=== PATIENT | female | born 1985 | race Two or more races ===

== ENCOUNTER 2024-05-19 15:43 | Emergency (ER) | payer OTHER, SELFPAY ==
[2024-05-19 15:52] VITALS: BP 136/70; PULSE 88; RESP 18; TEMP 36.6; O2SAT 99; BMI 48.8
--- NOTE | 2024-05-19 15:59 | PD.EDWOUND ---
ED Wound/Laceration-RME/HPI General Chief Complaint: Wound/Laceration Stated Complaint: LACERATION LEFT 2ND FINGER Time Seen by Provider: 05/19/24 15:47 Arrival date/time: 05/19/24 15:43 38-year-old female presents emergency department complaint of laceration left index finger palmar aspect there are no other associated symptoms or aggravating factors no other modifying factors, patient denies taking medication before coming to ER today Limitations: no limitations Related Data Home Medications ?Medication ?Instructions ?Recorded ?Confirmed Levothyroxine * (SYNTHROID *) 25 mcg PO QDAY #0 tabs 02/21/17 phentermine 37.5 mg capsule 0.5 tab PO QAMAC #0 caps 02/22/17 (Adipex-P) Previous Rx's ?Medication ?Instructions ?Recorded dicyclomine 20 mg tablet 20 mg PO TID PRN abdominal pain 06/01/23 #30 tabs hydrocodone 5 mg-acetaminophen 325 1 tab PO Q6H PRN pain #7 tabs 09/22/23 mg tablet ibuprofen 800 mg tablet (IBU) 800 mg PO Q8H #20 tabs 09/22/23 Allergies Allergy/AdvReac Type Severity Reaction Status Date / Time Penicillins Allergy Severe PT STATED, Verified 05/19/24 15:45 I STOPPED BREATHING A CHILD Review of Systems Review of Systems Systems Reviewed: All systems reviewed, normal except as documented Constitutional Constitutional: Reports system reviewed and no additional complaints, except as documented, Denies fever(s) and Denies headache(s) Eyes Eyes: Reports system reviewed and no additional complaints, except as documented and Denies blurry vision ENT Ears, Nose, Mouth, and Throat: Reports system reviewed and no additional complaints, except as documented, Denies headache(s), Denies nasal congestion and Denies nasal discharge Cardiovascular Cardiovascular: Reports system reviewed and no additional complaints, except as documented, Denies chest pain and Denies dyspnea Respiratory Respiratory: Reports system reviewed and no additional complaints, except as documented, Denies chest congestion, Denies cough and Denies dyspnea Gastrointestinal Gastrointestinal: Reports system reviewed and no additional complaints, except as documented and Denies abdominal pain Integumentary/Breasts Skin/Breast: Reports system reviewed and no additional complaints, except as documented, Denies rash and Reports wounds (Laceration finger) Neurologic Neurologic: Reports system reviewed and no additional complaints, except as documented, Reports as per HPI and Denies headache(s) Past Medical History Past Medical History CARDIAC: Negative Congestive Heart Failure RESPIRATORY: Negative Chronic Obstructive Pulmonary Disease (COPD) GENITOURINARY: Negative Renal Disease ENDOCRINE: Negative Diabetes Mellitus Type 1 or Diabetes Mellitus Type 2 OTHER HISTORY: Negative Blood Transfusions Social History SMOKING STATUS: Never smoker ED Exam General Limitations: Present no limitations General appearance: Present alert and in no apparent distress Head Head exam: Present atraumatic Eye Eye exam: Present normal appearance, PERRL and EOMI ENT ENT exam: Present normal exam, normal oropharynx and mucous membranes moist Neck Neck exam: Present normal inspection, full ROM and trachea midline Chest Chest inspection: Present normal inspection and symmetric chest wall rise Respiratory Respiratory exam: Present normal lung sounds bilaterally Cardiovascular Cardiovascular exam: Present regular rate, normal rhythm and normal heart sounds Abdominal Exam Abdominal exam: Present soft and normal bowel sounds Extremities Exam Extremities exam: Present full ROM, tenderness, normal capillary refill and other (Laceration left index finger); Absent joint swelling Back Exam Back exam: Present normal inspection and full ROM Neurological Exam Neurological exam: Present alert, oriented X3 and CN II-XII intact Psychiatric Psychiatric exam: Present normal affect and normal mood Skin Skin exam: Present warm, dry and other (Laceration left index finger) Course Quality Measures none Orders Category Date Time Status Set Up Suture Tray STAT Care 05/19/24 15:59 Active Wound Care NOW Care 05/19/24 15:59 Active Lidocaine 1% 20 ml [Xylocaine 1% 20 ML] Med 05/19/24 15:59 Discontinued 20 ml INFL X1 ONE Tet,Diphth,Pertuss(Acell)-Tdap [Boostrix Vacc] Med 05/19/24 15:59 Discontinued 0.5 ml IMI .ONCE ONE Vital Signs Vital signs: Vital Signs Temperature 98 F 05/19/24 15:52 Pulse Rate 88 05/19/24 15:52 Respiratory Rate 18 05/19/24 15:52 Blood Pressure 136/70 H 05/19/24 15:52 Pulse Oximetry (%) 99 05/19/24 15:52 Oxygen Delivery Method Room Air 05/19/24 15:52 O2 saturation 99% r/a wnl Procedures -ED Laceration Laceration 1: Site: hand Side (If applicable): left Size (cm): 3 Description: linear Depth: simple, single layer Local Anesthetic: lidocaine 1% Amount of anesthesia used (mL): 4 Pre-repair: irrigated extensively Skin layer closed with: nylon Size (cm): 4-0 Number of sutures: 5 Technique: simple, interrupted Wound / Laceration MDM Narrative MDM Narrative:: 38-year-old female presents emergency department complaint of laceration left index finger palmar aspect there are no other associated symptoms or aggravating factors no other modifying factors, patient denies taking medication before coming to ER today On exam patient is laceration distal aspect left index finger patient where she was cutting meat accidentally cut her finger unknown last tetanus Patient tetanus updated laceration pair with 5 sutures was well-approximated no active bleeding On exam no evidence of tendon or ligamentous injury Patient discharged home in no distress to follow-up with primary care doctor in the next 24 to 48 hours and for any worsening symptoms to return to the ER immediately Patient data External records reviewed:: [facility] previous records Clinical information provided by:: patient Social determinants that could affect healthcare access:: none Patient has the following chronic illnesses:: See history How is presenting disease/condition affected by chronic disease/condition?: uneffected by Evaluation data The following diagnostics were reviewed and interpreted by me:: other (specify) (N/A) Lab and/or radiology exams considered but not ordered:: Consider not ordered Interpretation Summary: N/A Medications / Prescriptions Medications or Prescriptions considered but not ordered:: Given Medication administrations:: Medication Administration History Discontinued Medications Diphtheria/Tetanus/Acell Pertussis (Diphth,Pertuss(Acell),Tet Vac 0.5 Ml Vial) 0.5 ml IMi .ONCE ONE Stop: 05/19/24 16:00 Lidocaine HCl (Lidocaine Hcl 1% 20 Ml Vial) 20 ml INFL X1 ONE Stop: 05/19/24 16:00 Given Consultations Consultation(s) initiated? (list below): No Diagnosis Wound Differential Diagnosis: laceration, abrasion and avulsion of skin Most likely diagnosis given after review of the tests above:: Laceration Admission Indicated Admission indicated?: not indicated Admission Request Was there a request for admission?: No Disposition Plan Disposition Plan: Discharge Discharge Attestation Discharge Attestation: The patient and all family members were given an opportunity to ask questions and understood the discharge instructions. Discharge instructions specifically effects, indications for sooner follow up or return to the emergency department, and the expected course of current diagnosis. Patient condition: Stable Discharge Plan Plan Patient Disposition: HOME (Self Care) Disposition Comment: Stable Prescriptions/Referrals Prescriptions/Med Rec: No Action Levothyroxine * (SYNTHROID *) 25 MCG tablet 25 mcg PO QDAY Qty: 0 phentermine [Adipex-P] 37.5 MG capsule 0.5 tab PO QAMAC Qty: 0 hydrocodone-acetaminophen 5-325 mg tablet 1 tab PO Q6H MDD 3 PRN (Reason: pain) Qty: 7 0RF ibuprofen [IBU] 800 mg tablet 800 mg PO Q8H Qty: 20 0RF dicyclomine 20 mg tablet 20 mg PO TID PRN (Reason: abdominal pain) Qty: 30 0RF Problem List Clinical Impression: Laceration of finger Patient/Caregiver Discharge Instructions Education Materials: ED Laceration: All Closures Additional Instructions: Please follow up with your primary care doctor in the next 24-48hrs for any worsening symptoms return here immediately Print Language: Danish Stand Alone Forms: Renetta Award Info., Patient Portal Info Letter PA/PATCH WASHER Supervising Physician PA/CARINE Supervising Physician: Dr. Ramos
[2024-05-19] MEDS: DIPHTH,PERTUSS(ACELL),TET VAC 0.5 ML VIAL IMi (16:16)
[2024-05-19] MEDS: LIDOCAINE HCL 1% 20 ML VIAL INFL (16:17)
== END 2024-05-19 17:17 | disposition home or self-care (01) ==
PROVIDERS: Emergency Provider Emergency Medicine; PCP Registered Nurse
DX: S61.211A Laceration without foreign body of left index finger without damage to nail, initial encounter (principal); W45.8XXA Other foreign body or object entering through skin, initial encounter; Z23 Encounter for immunization
CPT/HCPCS: 12002; 90471; 90715; 99283; J3490

== ENCOUNTER → 2024-07-05 | Outpatient (CLI) | payer OTHER, SELFPAY ==
--- NOTE | 2024-07-05 15:15 | XR_ITS ---
Examination: MRI left hand, without contrast Date and time of exam: July 05, 2024 at 1600 hours INDICATIONS: Left second digit pain numbness tightness swelling unable to bend the finger 1.5 months post laceration to the anterior distal phalanx second digit Technique: Multiple axial sagittal and coronal images of the left hand have been obtained with the Siemens high-resolution 1.5 Katerine MRI scanner. Images obtained include T2-weighted fat-suppressed sagittal sections, TR 3500, TE 46, T2 weighted coronal fat suppressed images, TR 3050, TE 84, T2-weighted transverse fat suppressed images, TR 3260, TE 63, proton density transverse images, TR 4720 TE 46, and T1 weighted coronal images, TR 560, TE 13. Findings: Marrow edema involves the distal second metacarpal and base of the proximal phalanx second digit Capsule is thickened at the second metacarpal phalangeal joint Flexor and extensor tendons are intact No definite annular cecile tear involving the second digit No cortical bone destruction No asymmetric joint effusion IMPRESSION: Thickened edematous capsule at the second metacarpal phalangeal joint, post injury appearance Marrow edema distal second metacarpal and base of the proximal phalanx second digit consistent with bone contusion Consider CT scan noncontrast hand follow-up to exclude microtrabecular fracture lines at the second metacarpal phalangeal joint
== END | disposition home or self-care (01) ==
PROVIDERS: PCP Family Medicine; Referring Provider Family Medicine; Visit Provider Family Medicine
DX: M25.442 Effusion, left hand (principal); S69.92XS Unspecified injury of left wrist, hand and finger(s), sequela; X58.XXXS Exposure to other specified factors, sequela
CPT/HCPCS: 73218

== ENCOUNTER 2025-05-31 01:27 | Emergency (ER) | payer OTHER, SELFPAY ==
--- NOTE | 2025-05-31 01:31 | EKG_ITS ---
[facility] Test Date: 2025-05-31 Pat Name: YOANA SALAZARDepartment: Room: - Gender: Female Verifier: : [id number] Requested By: ED Temporary Provider Order Number: [id number] Reading MD: ED Temporary Provider Measurements Intervals Stryker Rate: 93 P: 47 FL: 157 QRS: 32 QRSD: 85 T: 33 QT: 361 QTc: 451 Interpretive Statements SINUS RHYTHM LOW QRS VOLTAGE IN PRECORDIAL LEADS [QRS DEFLECTION < 1.0 mV IN CHEST LEADS] No previous ECG available for comparison /store/S0/[id number]/ecg/[id number].pdf
[2025-05-31 02:05] VITALS: BP 164/94; PULSE 78; RESP 18; TEMP 37; O2SAT 98
--- NOTE | 2025-05-31 02:35 | XR_ITS ---
EXAMINATION: PA chest single view TECHNIQUE: Upright PA chest single view Date and time: May 31, 2025, 0300 hours, comparison April 19, 2023 INDICATIONS: Chest pain shortness of breath squeezing sensation in the middle of the chest today. FINDINGS: Normal heart size No pneumonia or pulmonary edema Benign lobulation right hemidiaphragm IMPRESSION: No active disease
--- NOTE | 2025-05-31 02:37 | EDNOTE_ITS ---
ED Chest Pain RME/HPI General Chief Complaint: Chest Pain Stated Complaint: CHEST PAIN Time Seen by Provider: 05/31/25 02:34 Arrival date/time: 05/31/25 01:27 39F with history of hypothyroidism presents to ED with 2 days of intermittent CP and SOB after she found out about same bad/stressful news. Patient denies URI symptoms. Limitations: no limitations Related Data Home Medications ?Medication ?Instructions ?Recorded ?Confirmed Levothyroxine * (SYNTHROID *) 25 mcg PO QDAY #0 tabs 0 02/21/17 phentermine 37.5 mg capsule 0.5 tab PO QAMAC #0 caps 0 02/22/17 (Adipex-P) Previous Rx's ?Medication ?Instructions ?Recorded dicyclomine 20 mg tablet 20 mg PO TID PRN abdominal p ain 06/01/23 #30 tabs hydrocodone 5 mg-acetaminophen 325 1 tab PO Q6H PRN pa in #7 tabs 09/22/23 mg tablet ibuprofen 800 mg tablet (IBU) 800 mg PO Q8H #20 tabs 0 09/22/23 Allergies Allergy/AdvReac Type Severity Reaction Status Date / Time Penicillins Allergy Severe PT STATED, Verified 05/19/24 15:45 I STOPPED BREATHING A CHILD Review of Systems Review of Systems Systems Reviewed: All systems reviewed, normal except as documented Cardiovascular Cardiovascular: Reports as per HPI, Reports chest pain and Reports dyspnea Respiratory Respiratory: Reports as per HPI and Reports dyspnea Past Medical History Past Medical History CARDIAC: Negative Congestive Heart Failure RESPIRATORY: Negative Chronic Obstructive Pulmonary Disease (COPD) GENITOURINARY: Negative Renal Disease ENDOCRINE: Negative Diabetes Mellitus Type 1 or Diabetes Mellitus Type 2 OTHER HISTORY: Negative Blood Transfusions Social History SMOKING STATUS: Never smoker ED Exam General Limitations: Present no limitations General appearance: Present alert, in no apparent distress and anxious Head Head exam: Present atraumatic Neck Neck exam: Present normal inspection, full ROM and trachea midline Chest Chest inspection: Present normal inspection and symmetric chest wall rise Respiratory Respiratory exam: Present normal lung sounds bilaterally Cardiovascular Cardiovascular exam: Present regular rate, normal rhythm and normal heart sounds Neurological Exam Neurological exam: Present alert and oriented X3 Psychiatric Psychiatric exam: Present normal affect and anxious Skin Skin exam: Present warm, dry, intact and normal color Course Quality Measures none Orders Category Date Time Status EKG (ED ONLY) *Do not use* NOW Care 05/31/25 01:31 Completed EKG (ED Only) Stat Exams 05/31/25 01:31 Draft XR chest 1V portable Stat Exams 05/31/25 02:35 Taken CBC Stat Lab 05/31/25 02:41 Completed Comprehensive Metabolic Panel Stat Lab 05/31/25 02:41 Completed D-Dimer Stat Lab 05/31/25 02:41 Completed Troponin I Stat Lab 05/31/25 02:41 Completed Diazepam [Valium] Med 05/31/25 02:35 Discontinued 10 mg PO X1 ONE Naproxen [Naprosyn] Med 05/31/25 03:29 Discontinued 500 mg PO X1 ONE Vital Signs Vital signs: Vital Signs Temperature 98.6 F 05/31/25 02:05 Pulse Rate 78 05/31/25 02:05 Respiratory Rate 18 05/31/25 02:05 Blood Pressure 164/94 H 05/31/25 02:05 Pulse Oximetry (%) 98 05/31/25 02:05 Oxygen Delivery Method Room Air 05/31/25 02:05 O2 at 98% on RA and WNLs Chest Pain MDM Narrative MDM Narrative:: 39F with history of hypothyroidism presents to ED with 2 days of intermittent CP and SOB after she found out about same bad/stressful news. Patient denies URI symptoms. Physical exam reveals clear lungs and normal WOB. RRR. Patient is afebrile, alert, but anxious. EKG is NSR. Telerad CXR unremarkable. No leukocytosis. CMP unremarkable. Trop and D-dimer normal. Meds improved symptoms. Regional Account Manager given. Patient data External records reviewed:: [facility] previous records Clinical information provided by:: patient Social determinants that could affect healthcare access:: none Patient has the following chronic illnesses:: hypothyroidism How is presenting disease/condition affected by chronic disease/condition?: uneffected by Evaluation data The following diagnostics were reviewed and interpreted by me:: lab results, radiology exam(s) and EKG tracing(s) Lab and/or radiology exams considered but not ordered:: ordered Interpretation Summary: above Medications / Prescriptions Medications or Prescriptions considered but not ordered:: ordered Medication administrations:: Medication Administration History Discontinued Medications Diazepam (Diazepam 5 Mg Tablet) 10 mg PO X1 ONE Stop: 05/31/25 02:36 Last Admin: 05/31/25 02:52 Dose: 10 mg Documented By: SIA Naproxen (Naproxen 250 Mg Tablet) 500 mg PO X1 ONE Stop: 05/31/25 03:30 Last Admin: 05/31/25 03:44 Dose: 500 mg Documented By: SR above Consultations Consultation(s) initiated? (list below): No Diagnosis Chest Pain Differential Diagnosis: fracture of rib, pneumothorax, stable angina, unstable angina pectoris, atypical chest pain, st elevation myocardial infarction, chest pain, biliary colic and other (anxiety due to stress, PE) Most likely diagnosis given after review of the tests above:: anxiety due to stress and atypical chest pain Admission Indicated Admission indicated?: not indicated Admission Request Was there a request for admission?: No Disposition Plan Disposition Plan: Discharge Discharge Attestation Discharge Attestation: The patient and all family members were given an opportunity to ask questions and understood the discharge instructions. Discharge instructions specifically effects, indications for sooner follow up or return to the emergency department, and the expected course of current diagnosis. Patient condition: Stable Discharge Plan Plan Patient Disposition: HOME (Self Care) Discharge Disposition comment: Stable Prescriptions/Referrals Prescriptions/Med Rec: No Action Levothyroxine * (SYNTHROID *) 25 MCG tablet 25 mcg PO QDAY Qty: 0 phentermine [Adipex-P] 37.5 MG capsule 0.5 tab PO QAMAC Qty: 0 hydrocodone-acetaminophen 5-325 mg tablet 1 tab PO Q6H MDD 3 PRN (Reason: pain) Qty: 7 0RF ibuprofen [IBU] 800 mg tablet 800 mg PO Q8H Qty: 20 0RF dicyclomine 20 mg tablet 20 mg PO TID PRN (Reason: abdominal pain) Qty: 30 0RF Referrals: Emily Colon MD [Primary Care Provider, Family Practice] - In 1 week Problem List Clinical Impression: Atypical chest pain, Anxiety in acute stress reaction Patient/Caregiver Discharge Instructions Education Materials: Your Body's Response to Anxiety, ED Chest Pain, Uncertain Cause Additional Instructions: Please follow-up with PCP within 24-48 hours and return immediately if symptoms worsen. Print Language: Urdu Stand Alone Forms: Patient Portal Info Letter PA/TITLE ONE KINDERGARTEN TEACHER Supervising Physician PA/CARINE Supervising Physician: Dr. Clark
[2025-05-31] MEDS: DIAZEPAM 5 MG TABLET 10 MG PO (02:52)
[2025-05-31 02:55] LABS: Basophils # (Auto) 0.1 Thou/mm3 (0.0-0.2); Basophils % (Auto) 1 % (0-2.5); Eosinophils # (Auto) 0.3 Thou/mm3 (0.0-0.5); Eosinophils % (Auto) 3 % (0-10); Hematocrit 40.6 % (36.0-46.0); Hemoglobin 13.4 g/dL (12.0-16.0); Immature Granulocytes Auto 0.14 Thou/mm3 (0.00-0.00); Lymphocytes # (Auto) 2.8 Thou/mm3 (1.0-4.8); Lymphocytes % (Auto) 24 % (10-50); Mean Corpuscular HGB Conc 33.0 g/dl (31.0-37.0); Mean Corpuscular Hemoglobin 27.0 pg (25.0-35.0); Mean Corpuscular Volume 82 fL (80-100); Monocytes # (Auto) 1.3 Thou/mm3 (0.0-0.8); Monocytes % (Auto) 11 % (0-12); Neutrophils # (Auto) 7.1 Thou/mm3 (1.8-7.7); Neutrophils % (Auto) 60 % (37-80); Nucleated Red Blood Cell # 0.00 Thou/mm3 (0.00-0.00); Nucleated Red Blood Cell % 0 /100 WBC (0); Platelet Count 349 Thou/mm3 (140-440); RDW Standard Deviation 41.8 fL (36.4-46.3); Red Blood Count 4.97 Miln/mm3 (4.00-5.20); White Blood Count 11.8 Thou/mm3 (3.6-11.0)
[2025-05-31 03:12] LABS: Alanine Aminotransferase 21 U/L (10-49); Albumin, Serum 4.9 gm/dL (3.5-5.0); Albumin/Globulin Ratio 1.8 (1.2-2.2); Alkaline Phosphatase 97 U/L (46-116); Anion Gap 10 (7-16); Aspartate Amino Transferase 14 U/L (0-34); BUN/Creatinine Ratio 16 Ratio (12-20); Bilirubin,Total 0.3 mg/dL (0.3-1.2); Blood Urea Nitrogen 11 mg/dL (9-23); Calcium 9.6 mg/dL (8.3-10.6); Calcium (Corrected) 9.6 mg/dL (8.5-10.1); Carbon Dioxide 26.9 mMol/L (20.0-31.0); Chloride 104 mMol/L (98-107); Creatinine (Component) 0.7 mg/dL (0.6-1.3); Globulin 2.8 gm/dL (2.3-3.5); Glucose 100 mg/dL (74-106); Osmolality,Calculated 280 (275-295); Potassium 4.1 mMol/L (3.4-5.1); Sodium 141 mMol/L (136-145); Total Protein 7.7 gm/dL (5.7-8.2); Troponin I < 0.002 ng/mL (0.0-0.045); eGFR > 60 See Note
[2025-05-31 03:27] LABS: D-Dimer < 250 ng/mL (<600)
[2025-05-31] MEDS: NAPROXEN 250 MG TABLET 500 MG PO (03:44)
--- NOTE | 2025-05-31 03:44 | PRELIM_ITS ---
Radiograph of the chest (single view). May 31, 2025 0258 hours Clinical history: CP and SOB Comparison: No prior study is available for comparison. Findings: The heart, mediastinum and pulmonary roberto are unremarkable. The lungs are clear. There is no pleural effusion. The bony thorax is unremarkable. Impression: No focal consolidation or pleural effusion. Report Electronically Signed By: Nilsa Jurado 05/31/2025 3:43:35 AM [EST]
[2025-05-31 04:55] VITALS: BP 119/78; PULSE 70; RESP 18; TEMP 36.9; O2SAT 97
[2025-05-31 06:00] VITALS: BP 142/86; PULSE 98; RESP 18; TEMP 36.6; O2SAT 98
== END 2025-05-31 05:50 | disposition home or self-care (01) ==
PROVIDERS: Physician Assistant; Emergency Provider Emergency Medicine; PCP Family Medicine
DX: F43.0 Acute stress reaction (principal); R07.89 Other chest pain; R94.31 Abnormal electrocardiogram [ECG] [EKG]
CPT/HCPCS: 36415; 71045; 80053; 84484; 85025; 85379; 93005; 99283; A9270